=== PATIENT | female | born 1980 ===

== ENCOUNTER 2017-07-10 14:04 | Day surgery (SDC) | payer OTHER ==
[2017-07-10] MEDS ORDERED: DIAZEPAM 5 MG TAB ONE (14:33)
[2017-07-10 14:53] VITALS: RESP 18
[2017-07-10] MEDS ORDERED: DEXAMETHASONE SOD PHOS PF 10 MG/ML SOL IJ ONE (14:55)
[2017-07-10 15:27] VITALS: BP 132/85; PULSE 76; TEMP 97.3; O2SAT 97
== END 2017-07-10 15:52 | disposition home or self-care (01) ==
LOC: SURG 14:04
PROVIDERS: ATTEND Nurse Anesthetist, Certified Registered
DX: M54.5 Low back pain (principal); M54.16 Radiculopathy, lumbar region
CPT/HCPCS: J1100

== ENCOUNTER 2018-10-20 10:53 | Outpatient (CLI) | payer BC, OTHER ==
[2017-07-10 15:27] VITALS: O2SAT 97
== END 2018-10-20 10:54 | disposition home or self-care (01) ==
LOC: CONVCARE 10:53
PROVIDERS: ATTEND Orthopaedic Surgery
DX: M54.5 Low back pain (principal)
CPT/HCPCS: 73610